=== PATIENT | female | born 1970 | race Caucasian/White ===

== ENCOUNTER 2018-04-26 09:45 | Emergency (ER) | payer BC, OTHER ==
[~2018-04-26] VITALS: Ht 170.2 cm; Wt 81.8 kg
[2018-04-26 10:26] LABS: BASO % 0.8 % (0.0-1.0); EOS # 0.4 10^3/uL (0.0-0.50); EOS % 9.3 % (0.0-3.0); HEMATOCRIT 44.9 % (36.0-47.0); HEMOGLOBIN 15.4 g/dl (12.0-15.5); LYMPH # 1.5 10^3/uL (1.5-4.5); LYMPH % 38.3 % (24.0-44.0); MEAN CORPUSCULAR HEMOGLOBIN 32.1 pg (27.0-33.0); MEAN CORPUSCULAR HGB CONC 34.3 g/dl (32.0-36.5); MEAN CORPUSCULAR VOLUME 93.5 fl (80.0-96.0); MONO # 0.3 10^3/uL (0.0-0.8); MONO % 8.3 % (0.0-5.0); NEUTROPHILS # 1.7 10^3/uL (1.8-7.7); PLATELET COUNT, AUTOMATED 220 10^3/uL (150-450)
[2018-04-26 10:42] LABS: INR 1.09; PROTHROMBIN TIME 14.2 SECONDS (12.1-14.4)
--- NOTE | 2018-04-26 11:18 | REP ---
Portable chest, single AP view, the patient upright, 10:44 a.m.: Comparison is 01/05/2012. The lung santoyo are clear. The cardiac size is normal. The frank, mediastinum, and skeletal structures are unremarkable. Impression: Negative portable chest. Electronically Signed by Akshat Naranjo MD 04/26/2018 11:09 A
[2018-04-26 11:33] LABS: ALT/SGPT 28 U/L (12-78); BLOOD UREA NITROGEN 15 MG/DL (7-18); CALCIUM LEVEL 9.1 MG/DL (8.5-10.1); CARBON DIOXIDE LEVEL 28 MEQ/L (21-32); CHLORIDE LEVEL 105 MEQ/L (98-107); GLOMERULAR FILTRATION RATE > 60.0 (>58); GLUCOSE, FASTING 96 MG/DL (70-100); POTASSIUM SERUM 4.4 MEQ/L (3.5-5.1); SODIUM LEVEL 140 MEQ/L (136-145)
[2018-04-26 11:34] LABS: ALBUMIN 4.1 GM/DL (3.2-5.2); BILIRUBIN,DIRECT 0.1 MG/DL (0.0-0.2); BILIRUBIN,TOTAL 0.5 MG/DL (0.2-1.0); CK-MB VALUE MASS 1.1 NG/ML (<3.6); CPK CREATINE PHOSPHOKINASE 95 U/L (26-192); NT-PRO BNP 33 PG/ML (<125); TOTAL PROTEIN 7.8 GM/DL (6.4-8.2); TROPONIN I < 0.02 NG/ML (< 0.10)
[2018-04-26 11:35] LABS: MB/CK RELATIVE INDEX 0.01 (< OR =4)
[2018-04-26 16:53] LABS: CK-MB VALUE MASS < 1.0 NG/ML (<3.6); CPK CREATINE PHOSPHOKINASE 85 U/L (26-192); MB/CK RELATIVE INDEX 1.18 (< OR =4); TROPONIN I < 0.02 NG/ML (< 0.10)
[2018-04-26] MEDS ORDERED: ASPI1TAB PO (16:57)
[2018-04-26 17:33] VITALS: BP 112/75
--- NOTE | 2018-04-27 18:46 | ECGEPIP ---
Stationary ECG Study [facility] - ED Test Date: 2018-04-26 Pat Name: ZACHERY KELLEY Department: Room: - Gender: F [employer]: : 1970 Requested By: Temitope Davenport Order Number: [id number] Reading MD: Temitope Davenport Measurements Intervals [place] Rate: 68 P: 61 MA: 200 QRS: 89 QRSD: 116 T: 14 QT: 379 QTc: 406 Interpretive Statements SINUS RHYTHM MODERATE INTRAVENTRICULAR CONDUCTION DELAY LOW VOLTAGE LIMB SIMILAR 01/05/12 Electronically Signed On 04-27-2018 18:45:56 EST by Temitope Davenport
--- NOTE | 2018-04-27 18:56 | ECGEPIP ---
Stationary ECG Study [facility] - ED Test Date: 2018-04-26 Pat Name: ZACHERY KELLEY Department: Room: - Gender: F [employer] Operator: NEGRITA : 1970 Requested By: Temitope Davenport Order Number: [id number] Reading MD: Temitope Davenport Measurements Intervals [place] Rate: 71 P: 52 CA: 194 QRS: 42 QRSD: 116 T: 4 QT: 400 QTc: 435 Interpretive Statements SINUS RHYTHM MODERATE INTRAVENTRICULAR CONDUCTION DELAY NSTTW ABNORMALITY SIMILAR 04/26/18 Electronically Signed On 04-27-2018 18:56:09 EST by Temitope Davenport
== END 2018-04-26 17:34 | disposition home or self-care (01) ==
LOC: M ED 09:45
DX: R07.9 Chest pain, unspecified (principal); R11.0 Nausea; R42 Dizziness and giddiness; H53.8 Other visual disturbances